=== PATIENT | female | born 1955 | race Caucasian/White ===

== ENCOUNTER 2018-10-31 12:44 | Emergency (ER) | payer OTHER ==
[2018-10-31] MEDS: KETOROLAC 30 MG INJ IM (15:15)
== END 2018-10-31 15:31 | disposition home or self-care (01) ==
LOC: FTE 12:44
DX: M54.2 Cervicalgia (principal); Z56.6 Other physical and mental strain related to work
CPT/HCPCS: 96372; 99284-25